=== PATIENT | female | born 1990 | race Two or more races ===

== ENCOUNTER 2020-01-07 20:36 | Emergency (ER) | payer MEDICAID ==
[~2020-01-07] VITALS: Ht 165.1 cm; Wt 104.3 kg
--- NOTE | 2020-01-07 20:41 | NUR ---
not in department for 1st call. or lobby
[2020-01-07 21:00] VITALS: BP 122/78
[2020-01-07] MEDS ORDERED: Acetaminophen 500mg (ES) tab PO ONE (21:00)
--- NOTE | 2020-01-07 21:00 | NUR ---
ED Nurse Note: Patient walked in to ER from home with c/o right wrist injury, s/p slammed in car door at 4pm, mild deformity noted with swelling, severe pain at 10/10, pulses present, able to move fingers. Patient states 11 weeks . Patient AAO x4, VSS at this time
--- NOTE | 2020-01-07 21:20 | Diagnostic Imaging Report ---
EXAM: XR Right Wrist Complete, 3 or More Views CLINICAL HISTORY: PAIN TECHNIQUE: Frontal, lateral and oblique views of the right wrist. COMPARISON: No relevant prior studies available. FINDINGS: Bones/joints: No acute osseous abnormality. No dislocation. Soft tissues: Dorsal soft tissue edema over the distal forearm. No radiopaque foreign body. IMPRESSION: 1. No acute osseous abnormality. 2. Dorsal soft tissue edema over the distal forearm. 3. Otherwise no acute abnormality.
[2020-01-07] MEDS ORDERED: TYLENOL EXTRA500 MG ORAL (21:38)
[2020-01-07 21:45] VITALS: BP 122/78
--- NOTE | 2020-01-07 21:45 | NUR ---
ED Nurse Note: Pt cleared by health care Provider for discharge. DC instructions/prescription was given and explained to pt and verbalized understanding of teachings. All medical deviecs such as ID band removed. Pt is AAO x4, ambulatory and left with all personal belongings.
--- NOTE | 2020-01-07 22:29 | Emergency Room Report ---
History of Present Illness General Chief Complaint: Upper Extremity Injury Source: Patient Present Illness HPI 29-year-old female presents ED complaining of right wrist pain. States that today she actually slammed car door on her right forearm. Swelling and bruising noted. Pain is dull, 9 out of 10, nonradiating. Denies any other injuries. No other aggravating relieving factors. Denies any other associated symptoms Allergies: Coded Allergies: No Known Allergies (Unverified , 01/07/20) COVID-19 Screening Contact w/high risk pt: No Recent Travel to affected area: No Experienced COVID-19 symptoms?: No Patient History Past Medical History: none Past Surgical History: none Pertinent Family History: none Social History: Denies: smoking, alcohol use, drug use Now: Yes Immunizations: UTD Reviewed Nursing Documentation: PMH: Agreed; PSxH: Agreed Review of Systems All Other Systems: negative except mentioned in HPI Physical Exam Vital Signs Date Time Temp Pulse Resp B/P (MAP) Pulse Ox O2 Delivery O2 Flow Rate FiO2 01/07/20 20:46 98.2 106 18 122/78 (93) 96 Room Air Sp02 EP Interpretation: reviewed, normal General Appearance: no apparent distress, alert, GCS 15, non-toxic Head: normocephalic, atraumatic Eyes: bilateral eye normal inspection, bilateral eye PERRL ENT: hearing grossly normal, normal pharynx, no angioedema, normal voice Neck: full range of motion, supple/symm/no masses Respiratory: chest non-tender, lungs clear, normal breath sounds, speaking full sentences Cardiovascular #1: regular rate, rhythm, no edema Cardiovascular #2: 2+ carotid (R), 2+ carotid (L), 2+ radial (R), 2+ radial (L) , 2+ dorsalis pedis (R), 2+ dorsalis pedis (L) Gastrointestinal: normal bowel sounds, non tender, soft, non-distended, no guarding, no rebound Rectal: deferred Genitourinary: normal inspection, no CVA tenderness Musculoskeletal: back normal, normal range of motion, gait/station normal, tender - ecchymoses, bruising TTP R forearm Neurologic: alert, motor strength/tone normal, oriented x3, sensory intact, responsive, speech normal Psychiatric: judgement/insight normal, memory normal, mood/affect normal, no suicidal/homicidal ideation Reflexes: 3+ bicep (R), 3+ bicep (L), 3+ tricep (R), 3+ tricep (L), 3+ knee (R) , 3+ knee (L) Lymphatic: no adenopathy Procedures Splinting Splinting : Consent: Verbal Pre-Made Type: YUMIKO wrap Pre-Proc Neuro Vasc Exam: normal Post-Proc Neuro Vasc Exam: normal Patient Tolerated: Well Complications: None Medical Decision Making Diagnostic Impression: Primary Impression: Contusion, wrist Qualified Codes: S60.211A - Contusion of right wrist, initial encounter ER Course Hospital Course 29-year-old F presents to ED complaining of R wrist pain s/p slammed in car door Differential diagnoses include: Fracture, dislocation, sprain, contusion Clinical course Patient placed on stretcher. After initial history and physical, I ordered pain medications and Xrays of R wrist. patient ; shield placed on patient Xrays read shows no acute fracture/dislocation. placed in yumiko wrap, given sling I discussed findings with patient. Will discharge home. Safe for discharge with close outpatient follow-up Diagnosis - wrist contusion Stable and discharged to home with prescription for Tylenol. apply ice, keep elevated. weight bear as tolerated. Followup with PMD. Return to ED if symptoms recur or worsen Other X-Ray Diagnostic Results Other X-Ray Diagnostic Results : X-Ray ordered: R wrist # of Views/Limited Vs Complete: 3 View Indication: Pain EP Interpretation: Yes Interpretation: no dislocation, no fractures Impression: No acute disease Electronically Signed by: Electronically signed by Otis Yeh MD Last Vital Signs Date Time Temp Pulse Resp B/P (MAP) Pulse Ox O2 Delivery O2 Flow Rate FiO2 01/07/20 21:45 98.2 18 122/78 96 Room Air 01/07/20 20:46 106 Status: improved Disposition: HOME, SELF-CARE Condition: Stable Scripts Acetaminophen* (TYLENOL EXTRA STRENGTH*) 500 Mg Tablet 500 MG ORAL Q8H PRN for Prn Headache/Temp > 101, #30 TAB 0 Refills Prov: Otis Yeh MD 01/07/20 Referrals: NON PHYSICIAN (PCP) Yoan Hunter [facility]. [facility] Open 24 hour /7 days a week by Appointment Only [address] [facility] [id number] Patient Instructions: Contusion-[facility] Otis Yeh MD Jan 07, 2020 22:29
== END 2020-01-07 21:46 | disposition home or self-care (01) ==
LOC: EMR 21:10
DX: S60.211A Contusion of right wrist, initial encounter (principal); W23.0XXA Caught, crushed, jammed, or pinched between moving objects, initial encounter; Y92.9 Unspecified place or not applicable
CPT/HCPCS: 73110; Z7502; 99283

== ENCOUNTER 2020-02-20 17:53 | Emergency (ER) | payer MEDICAID ==
[~2020-02-20] VITALS: Ht 165.1 cm; Wt 104.3 kg
[~2020-02-20 17:53] MED LIST: TYLENOL EXTRA500 MG ORAL
--- NOTE | 2020-02-20 18:02 | NUR ---
ED Nurse Note: Patient walked in to ED from home c/o left 5th finger pain x couple mins ago. Per pt, her finger got slammed in the car door by her children. Noted with small laceration, not actively bleeding. Pt is 17 weeks .
[2020-02-20] MEDS ORDERED: HYDROcodone/Acetamin 7.5/325 tab ORAL ONE (18:15)
--- NOTE | 2020-02-20 18:16 | Emergency Room Report ---
History of Present Illness General Chief Complaint: Upper Extremity Injury Source: Patient Present Illness HPI 29-year-old female presents to the emergency department complaining of 10 out of 10 severity localized pain to the left fifth digit x1 hour. Patient reports status post accidentally slamming her finger in a car door. She reports pain is exacerbated upon palpation or movement. Patient reports some small amount of bleeding. Patient denies paresthesias. Patient denies significant past medical history other than asthma. Patient states she is 17 weeks . She reports that she is right-hand dominant. Denies loss of gross motor movements of the affected extremity. No other aggravating or relieving factors at this time. Allergies: Coded Allergies: No Known Allergies (Unverified , 01/07/20) COVID-19 Screening Contact w/high risk pt: No Recent Travel to affected area: No Experienced COVID-19 symptoms?: No COVID-19 Testing performed CRM TECHNICAL LEAD: No Patient History Past Medical History: see triage record, asthma Past Surgical History: none Pertinent Family History: none Last Menstrual Period: 17weeks Now: Yes - 17 weeks Immunizations: UTD Reviewed Nursing Documentation: PMH: Agreed; PSxH: Agreed Nursing Documentation-PMH Past Medical History: No History, Except For Hx Asthma: Yes Review of Systems All Other Systems: negative except mentioned in HPI Physical Exam Vital Signs Date Time Temp Pulse Resp B/P (MAP) Pulse Ox O2 Delivery O2 Flow Rate FiO2 02/20/20 18:01 98.4 101 20 106/68 (81) 98 Room Air Sp02 EP Interpretation: reviewed, normal General Appearance: no apparent distress, alert, GCS 15, non-toxic Head: normocephalic, atraumatic Eyes: bilateral eye normal inspection, bilateral eye PERRL ENT: hearing grossly normal, normal voice Neck: full range of motion Respiratory: chest non-tender, lungs clear, normal breath sounds, speaking full sentences Cardiovascular #1: regular rate, rhythm, normal capillary refill Musculoskeletal: gait/station normal, tender - Left 5th digit, swelling - left 5th digit Neurologic: alert, motor strength/tone normal, oriented x3, sensory intact, responsive, speech normal Psychiatric: judgement/insight normal Skin: laceration - puncture wound on the left 5th digit. not bleeding. Medical Decision Making PA Attestation Dr. Meza is my supervising Physician whom patient management has been discussed with. Diagnostic Impression: Primary Impression: Crushing injury of finger of left hand ER Course 29-year-old female presents to the emergency department complaining of 10 out of 10 severity localized pain to the left fifth digit x1 hour. Patient reports status post accidentally slamming her finger in a car door. She reports pain is exacerbated upon palpation or movement. Patient reports some small amount of bleeding. Patient denies paresthesias. Patient denies significant past medical history other than asthma. Patient states she is 17 weeks . She reports that she is right-hand dominant. Denies loss of gross motor movements of the affected extremity. No other aggravating or relieving factors at this time. Ddx considered but are not limited to Fracture, dislocation, contusion, Sprain/ Strain/Spasm, Laceration, nail-bed injury just to name a few. Vital signs: are WNL, pt. is afebrile H&PE are most consistent with musculoskeletal injury will perform imaging to r/ o fractures/dislocations. ORDERS: - X-ray Left fingers 2-3 views - negative for fx, Dislocation, or significant soft tissue injury, per preliminary read in ED, and signed by FRANKIE Santoro, my supervising physician has reviewed, and agrees with my interpretation. ED INTERVENTIONS: - Tylenol 650mg PO - ICE pack applied to the affected hand. - Digital block performed using 3cc of 1% Lidocaine for immediate pain relief. - Wound was irrigated. bacitracin and sterile band-aid was applied. - Left 5th digit was splinted with finger splint applied by mobile battery technician. Pt. remains neurovascularly intact. DISCHARGE: At this time pt. is stable for d/c to home. Will provide printed patient care instructions, and any necessary prescriptions. Care plan and follow up instructions have been discussed with the patient prior to discharge. Other X-Ray Diagnostic Results Other X-Ray Diagnostic Results : X-Ray ordered: Left Fingers # of Views/Limited Vs Complete: 3 View Indication: Pain EP Interpretation: Yes FRANKIE Xray: Interpretation reviewed, by supervising MD, and agrees with findings. Interpretation: no dislocation, no soft tissue swelling, no fractures Impression: No acute disease Electronically Signed by: Letty Santoro PA-C Last Vital Signs Date Time Temp Pulse Resp B/P (MAP) Pulse Ox O2 Delivery O2 Flow Rate FiO2 02/20/20 18:01 98.4 101 20 106/68 (81 98 Room Air Status: improved Disposition: HOME, SELF-CARE Condition: Stable Scripts Bacitracin (Bacitracin) 28.4 Gm Oint...g. 1 APPLIC TOPIC THREE TIMES A DAY, #28.1 GM Prov: Letty Santoro 02/20/20 Acetaminophen* (TYLENOL EXTRA STRENGTH*) 500 Mg Tablet 500 MG ORAL Q6H, #20 TAB 0 Refills Prov: Letty Santoro 02/20/20 Referrals: [facility] Departure Forms: Return to Work Return to Work Date: Feb 24, 2020 Other Restrictions: May return Sooner if Symptoms have resolved. Return to Full Activity: Feb 24, 2020 Work Restrictions: None, No Heavy Lifting Patient Instructions: Crush Injury, Fingers or Toes, [id number] Additional Instructions: Take medications as directed. Follow up with an EVAPORATOR in 3-5 days, even if your symptoms have resolved. --Please review list of primary care clinics, if you do not already have a primary care provider who can give you an Orthopedic Referral. Return sooner to ED if new symptoms occur, or current symptoms become worse. - Please note that this Emergency Department Report was dictated using [employer] technology software, occasionally this can lead to erroneous entry secondary to interpretation by the dictation equipment. Letty Santoro Feb 20, 2020 18:16
--- NOTE | 2020-02-20 18:27 | NUR ---
ED Nurse Note: Xray at bedside.
[2020-02-20] MEDS ORDERED: Lidocaine 1% MPF 10mg/ml 5ml IM ONE (18:30)
[2020-02-20 18:41] VITALS: BP 106/68
[2020-02-20] MEDS ORDERED: TYLENOL EXTRA500 MG ORAL (18:41)
[2020-02-20] MEDS ORDERED: BACITRACIN15 GM TOPIC (18:41)
[2020-02-20] MEDS ORDERED: Bacitracin Oint UD TOPIC ONE (18:45)
--- NOTE | 2020-02-20 18:52 | Diagnostic Imaging Report ---
EXAM: XR Left Fingers, 2 or More Views CLINICAL HISTORY: PAIN TECHNIQUE: Frontal, lateral and oblique views of the fingers of the left hand. COMPARISON: None. FINDINGS: Bones/joints: Unremarkable. No acute fracture. No dislocation. Soft tissues: Soft tissue swelling throughout the little finger is noted. Subtle irregularity along the ulnar aspect of the little finger near the distal interphalangeal joint suggest underlying laceration. No radiopaque foreign body. IMPRESSION: Little finger soft tissue swelling without acute osseous abnormality.
[2020-02-20 19:01] VITALS: BP 115/70
--- NOTE | 2020-02-20 19:01 | NUR ---
ED Nurse Note: Pt cleared by ERPA for discharge. DC instructions/prescription was given and explained to pt and verbalized understanding of teachings. All medical deviecs such as ID band removed. Pt is AAO x4, ambulatory and left with all personal belongings.
== END 2020-02-20 19:01 | disposition home or self-care (01) ==
LOC: EMR 18:15
DX: S67.197A Crushing injury of left little finger, initial encounter (principal); S61.237A Puncture wound without foreign body of left little finger without damage to nail, initial encounter; W23.0XXA Caught, crushed, jammed, or pinched between moving objects, initial encounter; Y92.9 Unspecified place or not applicable; O26.92 Pregnancy related conditions, unspecified, second trimester; Z3A.17 17 weeks gestation of pregnancy
CPT/HCPCS: 73140; Z7502; 99283